=== PATIENT | male | born 1970 | race Caucasian/White ===

== ENCOUNTER 2016-11-16 16:29 | Emergency (ER) | payer SELFPAY ==
[~2016-11-16] VITALS: Ht 167.6 cm; Wt 70.0 kg
[~2016-11-16 16:29] MED LIST: ALBU1AER INH; CLIN150 PO; IBUP800T23 PO; IPRAAER IN
[2016-11-16 16:32] VITALS: BP 134/67; PULSE 76; RESP 24; TEMP 98; O2SAT 98
--- NOTE | 2016-11-16 16:36 | PD ---
Physical Exam Date Seen by Provider: Nov 16, 2016 Time Seen by Provider: 16:35 Narrative 46 yo male that presents to the ED for possible abscess. Has had this since this weekend. Fell into a spine which is what he believes started. Hurts to walk but able to do so. History of this in the past. Vitals are stable in triage. Awaiting Bed placement. Data Data Last Documented VS Vital Signs Date Time Temp Pulse Resp B/P Pulse Ox O2 Delivery O2 Flow Rate FiO2 11/16/16 16:32 98.0 76 24 134/67 98 Room Air [facility] Medical Record Reviewed: Yes Supervised Visit with DAR: No Gareth Delacruz Nov 16, 2016 16:36
== END 2016-11-16 18:45 | disposition left against medical advice (07) ==
LOC: NED 16:29
DX: L98.9 Disorder of the skin and subcutaneous tissue, unspecified (principal)
CPT/HCPCS: 99281

== ENCOUNTER 2016-11-18 19:40 | Emergency (ER) | payer SELFPAY ==
[2016-11-18 19:45] VITALS: BP 142/83; PULSE 98; RESP 16; TEMP 98.4; O2SAT 98
--- NOTE | 2016-11-18 20:28 | PD ---
Physical Exam Date Seen by Provider: Nov 18, 2016 Time Seen by Provider: 20:27 Data Data Last Documented VS Vital Signs Date Time Temp Pulse Resp B/P Pulse Ox O2 Delivery O2 Flow Rate FiO2 11/18/16 19:45 98.4 98 16 142/83 98 Room Air MDM Supervised Visit with DAR: No Narrative Course 46 YO M with PMH of MRSA with complaint of wound on the back of the right thigh x 6 days. Patient states that he pulled a splinter out of the wound a few days ago. -- F/C. Vitals reviewed. Patient seen in triage, awaiting bed placement. Mariana Juárez Nov 18, 2016 20:28
[2016-11-18] MEDS ORDERED: IPRAAER INH (22:01)
[2016-11-18] MEDS ORDERED: ALBUAER3 INH (22:01)
[2016-11-18] MEDS ORDERED: LIDOCAINE 1%/EPINEPHrine 1:100,000 SOLN 20 ML VIAL INFIL ONE (22:15)
[2016-11-18] MEDS ORDERED: CLINDAMYCIN INJ 900 MG in SODIUM CHLORIDE 0.9% INJ 100 ML IV ONE (22:15)
[2016-11-18] MEDS ORDERED: BUPIVACAINE HCL PF 0.5% 30 ML VIAL INFIL ONE (22:15)
[2016-11-18] MEDS ORDERED: ONDANSETRON HCL 4 MG/2 ML VIAL IV PUSH ONE (22:15)
[2016-11-18] MEDS ORDERED: MORPHINE SULFATE 8 MG/ML INJ IV PUSH ONE (22:15)
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
[2016-11-18] MEDS ORDERED: CLIN150 PO (22:22)
[2016-11-18] MEDS ORDERED: CEPH500C PO (22:22)
[2016-11-18] MEDS ORDERED: HYDR-3533 PO (22:22)
[2016-11-18] MEDS ORDERED: LIDOCAINE 1%/EPINEPHrine 1:100,000 SOLN 50 ML VIAL ONE (22:26)
[2016-11-18] MEDS ORDERED: LIDOCAINE 1%/EPINEPHrine 1:100,000 SOLN 50 ML VIAL INFIL ONE (23:00)
== END 2016-11-19 00:24 | disposition home or self-care (01) ==
LOC: NEPD 19:40
DX: L02.416 Cutaneous abscess of left lower limb (principal); L03.116 Cellulitis of left lower limb; A49.02 Methicillin resistant Staphylococcus aureus infection, unspecified site; J45.909 Unspecified asthma, uncomplicated; J44.9 Chronic obstructive pulmonary disease, unspecified; B19.20 Unspecified viral hepatitis C without hepatic coma; I10 Essential (primary) hypertension; Z87.891 Personal history of nicotine dependence; Z79.899 Other long term (current) drug therapy
CPT/HCPCS: 10060; 86403; 87070; 87186; 96365; 96375; 99284; J2270; J2405; 87205

== ENCOUNTER 2017-08-16 12:06 | Emergency (ER) | payer SELFPAY ==
[2017-08-16] MEDS: ACETAMINOPHEN/HYDROcodone 325 MG/5 MG TAB PO (14:14)
[2017-08-16] MEDS: CEPHALEXIN MONOHYDRATE 500 MG CAP PO (14:14)
== END 2017-08-16 16:04 | disposition home or self-care (01) ==
LOC: PHEFT 12:06
DX: S61.012A Laceration without foreign body of left thumb without damage to nail, initial encounter (principal); I10 Essential (primary) hypertension; J44.9 Chronic obstructive pulmonary disease, unspecified; F17.200 Nicotine dependence, unspecified, uncomplicated; W45.8XXA Other foreign body or object entering through skin, initial encounter; Z86.19 Personal history of other infectious and parasitic diseases; Z87.442 Personal history of urinary calculi; Z88.2 Allergy status to sulfonamides; Z88.8 Allergy status to other drugs, medicaments and biological substances
CPT/HCPCS: 12001; 73130; 99283-25